=== PATIENT | male | born 1995 | race Two or more races ===

== ENCOUNTER 2024-08-08 20:57 | Emergency (ER) | payer MEDICAID, OTHER ==
[~2024-08-08] VITALS: Ht 180.3 cm; Wt 100.2 kg
[2024-08-08] MEDS ORDERED: AMOX875T4 PO (21:42)
[2024-08-08] MEDS ORDERED: IBUP-1456 PO (21:42)
--- NOTE | 2024-08-08 21:42 | ED.PDOC ---
History of Present Illness(SKN HPI Comments 29-year-old male presents to ER for wound check. Patient reports that he developed a "pimple" to left buttock three days ago that has since gotten bigger with associated redness and pain x1 day. Reports 3/10 pain localized to left buttock. Denies use of medications for current symptoms and presents to ER ambulatory on arrival, with steady gait, in no distress. Denies fever, body aches, chills, night sweats, drainage or any further symptoms/complaints Chief Complaint: Abscess Time Seen by MD: 21:04 Primary Care Provider: UNKNOWN History of Present Illness: Nurses Notes, Medications, Allergies Home Meds Active Scripts Ibuprofen (Ibuprofen) 800 Mg Tab, 1 TAB PO TID PRN, #30 TAB 0 Refills Prov:MARISA MENENDEZ 08/08/24 Amoxicillin & Pot Clavulanate (Amoxicillin/Potassium Cla) 875 Mg Tab, 1 TAB PO BID for 7 Days, #14 TAB 0 Refills Prov:MARISA MENENDEZ 08/08/24 Information Source: Patient Past Medical History PAST MEDICAL HISTORY: Denies Surgical History: Denies all surgeries Family History Family History: Unknown Social History Smoker: Non-Smoker Alcohol: Denies ETOH Use Drugs: Denies Drug Use Lives In: Home Constitutional: denies: chills, diaphoresis, fatigue, fever, malaise, sweats, weakness, others EENTM: denies: blurred vision, double vision, ear bleeding, ear discharge, ear drainage, ear pain, ear ringing, eye pain, eye redness, hearing loss, mouth pain, mouth swelling, nasal discharge, nose bleeding, nose congestion, nose pain, photophobia, tearing, throat pain, throat swelling, voice changes, others Respiratory: denies: cough, hemoptysis, orthopnea, SOB at rest, shortness of breath, SOB with excertion, stridor, wheezing, others Cardiovascular: denies: chest pain, dizzy spells, diaphoresis, Dyspnea on exertion, edema, irregular heart beat, left arm pain, lightheadedness, palpitations, PND, syncope, others Gastrointestinal: denies: abdomen distended, abdominal pain, blood streaked bowels, constipated, diarrhea, dysphagia, difficulty swallowing, hematemesis, melena, nausea, poor appetite, poor fluid intake, rectal bleeding, rectal pain, vomiting, others Genitourinary: denies: burning, dysuria, flank pain, frequency, hematuria, incontinence, penile discharge, penile sore, pain, testicle pain, testicle swel ling, urgency, others Neurological: denies: dizziness, fainting, headache, left sided numbness, left sided weakness, numbness, paresthesia, pre-existing deficit, right sided numbness, right sided weakness, seizure, speech problems, tingling, tremors, weakness, others Musculoskeletal: denies: back pain, gout, joint pain, joint swelling, muscle pain, muscle stiffness, neck pain, others Integumetry: reports: others (As stated in HPI) Allergic/Immunocompromised: denies: Difficulty Healing, Frequent Infections, Hives, Itching, others Hematologic/Lymphatic: denies: anemia, blood clots, easy bleeding, easy bruising, swollen glands, others Endocrine: denies: excessive hunger, excessive sweating, excessive thirst, excessive urination, flushing, intolerance to cold, intolerance to heat, unexplained weight gain, unexplained weight loss, others Psychiatric: denies: anxiety, bipolar disorder, depression, hopeless, panic disorder, schizophrenia, sleepless, suicidal, others Physical Exam General Appearance: No Apparent Distress HEENT: PERRL/EOMI Neck: Full Range of Motion, Non-Tender, Normal Respiratory: Chest Non-Tender, Lungs Clear, No Accessory Muscle Use, No Respiratory Distress, Normal Breath Sounds Cardiovascular: No Murmur, No Gallop, Regular Rate/Rhythm Breast Exam: Deferred Gastrointestinal: NOT DONE Genitalia: Deferred Pelvic: Deferred Rectal: Deferred Extremities: Normal capillary refill, Normal range of motion Neurologic: Alert, No Motor Deficits, Normal Affect, Normal Mood, No Sensory Deficits Cerebellar Function: Normal Reflexes: Normal Skin: Dry, Warm, Other (<.5 cm papule with mild surrounding swelling/erythema centralized to left buttock. No fluctuance/drainage/further skin changes noted) Lymphatic: No Adenopathy Was a procedure done? Was a procedure done?: No Sedation Sedation?: No Differential Diagnosis (INTG) Differential Diagnosis: Abrasion Differential Diagnosis: Abscess Differential Diagnosis: Puncture Wound, Retained Foreign Body X-Ray, Labs, Meds, VS Vital Signs Date Time Temp Pulse Resp B/P (MAP) Pulse Ox O2 Delivery O2 Flow Rate FiO2 08/08/24 21:10 98.6 129 16 116/97 (103) 99 98.6 Rocephin 1 g IM ordered Wound care/cleaning discussed and advised Advised to follow up with PCP in 1-2 days Patient verbalized understanding and agreeable with current plan of care Advised to return to ER immediately if symptoms worsen Time of 1ST Reevaluation: 21:24 Reevaluation 1ST: N/A Patient Education/Counseling: Diagnosis, Treatment, Prognosis, Need For Follow Up Family Education/Counseling: No Family Present SEPSIS Sepsis Screen Vital Signs Date Time Temp Pulse Resp B/P (MAP) Pulse Ox O2 Delivery O2 Flow Rate FiO2 08/08/24 21:10 98.6 129 16 116/97 (103) 99 98.6 Departure 1 Departure Time of Disposition: 21:40 Impression: Primary Impression: Cellulitis of buttock, left Disposition: 01 HOME / SELF CARE / HOMELESS Condition: Stable e-Prescriptions Ibuprofen (Ibuprofen) 800 Mg Tab 1 TAB PO TID PRN, #30 TAB 0 Refills Prov: MARISA MENENDEZ 08/08/24 Amoxicillin & Pot Clavulanate (Amoxicillin/Potassium Cla) 875 Mg Tab 1 TAB PO BID for 7 Days, #14 TAB 0 Refills Prov: MARISA MENENDEZ 08/08/24 Discharged With: Self Critical Care Note Critical Care Time?: No Stability Stability form required: No Heart Score Heart Score: Heart Score Response (Comments) Value History N/A 0 EKG N/A 0 Age N/A 0 Risk Factors N/A 0 Troponin N/A 0 Total 0 MARISA MENENDEZ Aug 08, 2024 21:42
[2024-08-08] MEDS ORDERED: cefTRIAXone SOD 1,000 MG VL IM ONE (21:45)
[2024-08-08 22:24] VITALS: BP 126/90; PULSE 108; RESP 18; TEMP 98.7; O2SAT 100
== END 2024-08-09 01:18 | disposition home or self-care (01) ==
LOC: ER 21:01
DX: L03.317 Cellulitis of buttock (principal); Z79.899 Other long term (current) drug therapy

== ENCOUNTER 2025-02-10 23:56 | Emergency (ER) | payer MEDICAID ==
[~2025-02-10 23:56] MED LIST: AMOX875T4 PO; IBUP-1456 PO
[2025-02-11 00:05] VITALS: PULSE 123; O2SAT 94
--- NOTE | 2025-02-11 00:12 | ED.PDOC ---
Pediatric Illness HPI Chief Complaint: Shortness of Breath Comments 5-month-old male is [id number] mother and father for c/c of dyspnea and barking cough. Patient is reported to have had flu-like symptoms with congestion for the past 2x days. Tonight, patient is reported to have developed seal-like barking cough with associated signs of difficulty breathing. History of croup in the past. Upon arrival to ED, patient was found with a SpO2 of 93-94%RA. Time Seen by MD: 00:00 Primary Care Provider: UNKNOWN Home Meds Active Scripts Ibuprofen (Ibuprofen) 800 Mg Tab, 1 TAB PO TID PRN, #30 TAB 0 Refills Prov:MARISA MENENDEZ 08/08/24 Amoxicillin & Pot Clavulanate (Amoxicillin/Potassium Cla) 875 Mg Tab, 1 TAB PO BID for 7 Days, #14 TAB 0 Refills Prov:MARISA MENENDEZ 08/08/24 Information Source: Relative Mode of Arrival: Carried Prehospital Treatment: None Severity: Moderate Timing: Hours Past Medical History Pediatric Medical History (Oth: croup Medical History: croup Operations: Denies Family History Family History: Unknown Social History Smoking: Non-Smoker Alcohol: Denies ETOH Use Drugs: Denies Drug Use Lives In: Home All Other Systems: Reviewed and Negative (As per HPI) Physical Exam General Appearance: No Apparent Distress, Normal HEENT: Pharynx Normal, TMs Normal, Other (nasal congestion, otherwise, normal HEENT) Neck: Full Range of Motion, Non-Tender, Normal, Normal Inspection Respiratory: Chest Non-Tender, No Accessory Muscle Use, No Respiratory Distress, Stridor (mild ) Cardiovascular: No Edema, No JVD, No Murmur, No Gallop, Normal Peripheral Pulses, Regular Rate/Rhythm Breast Exam: Deferred Gastrointestinal: No Organomegaly, Non Tender, No Pulsatile Mass, Normal Bowel Sounds, Soft Genitalia: Deferred Pelvic: Deferred Rectal: Deferred Extremities: No calf tenderness, Normal capillary refill, Normal inspection, Normal range of motion, Non-tender, No pedal edema Musculoskeletal : Apperance: Normal Neurologic: Alert, assigner II-XII nml as Tested, No Motor Deficits, Normal Affect, Normal Mood, No Sensory Deficits Cerebellar Function: Normal Reflexes: Normal Skin: Dry, Normal Color, Warm Lymphatic: No Adenopathy Was a procedure done? Was a procedure done?: No Pediatric Differential Dx Pediatric Differential Dx: Bronchitis, Dehydration, Electrolyte disorder, Hypoxemia, Influenza, Pneumonia, URI, Viral exanthem, Viral Syndrome X-Ray, Labs, Meds, VS Vital Signs Date Time Temp Pulse Resp B/P (MAP) Pulse Ox O2 Delivery O2 Flow Rate FiO2 02/11/25 00:23 28 Room Air* 0 21 02/11/25 00:18 98.6 02/11/25 00:05 97.9 123 28 94 97.9 Current Medications Medications (Trade) Dose Ordered Sig/Estella Route Start Time Stop Time Status Last Admin Dexamethasone Sodium Phosphate (Decadron Injection) 6 mg ONCE ONCE PO 02/11/25 00:15 02/11/25 00:16 DC 02/11/25 00:18 Epinephrine HCl (Racenephrine) 0.5 ml ONCE ONCE NEB 02/11/25 00:15 02/11/25 00:16 DC 02/11/25 00:23 Ibuprofen (MOTRIN 100MG/5 mL ORAL SUSP) 85 mg ONCE ONCE PO 02/11/25 00:15 02/11/25 00:16 DC 02/11/25 00:18 Time of 1ST Reevaluation: 00:30 Reevaluation 1ST: Unchanged Patient Education/Counseling: Other (Patient is an infant ) Family Education/Counseling: Diagnosis, Treatment Departure 1 Departure Time of Disposition: 02:00 Impression: Primary Impression: Croup Additional Impression: Croup in pediatric patient Disposition: 01 HOME / SELF CARE / HOMELESS Condition: Stable Discharged With: Relative (Mother) Critical Care Note Critical Care Time?: No Stability Stability form required: No I personally scribed for LIBAN CORDOVA MD ([email or web address]) on 02/11/25 at 00:12. Electronically submitted by Kristian Snow [email or web address]). LIBAN CORDOVA MD Feb 11, 2025 00:12
[2025-02-11 00:18] VITALS: TEMP 98.6
[2025-02-11] MEDS: IBUPROFEN 100MG/5ML ORAL SUSP 100 MG/5 ML UD PO ONE (00:18)
[2025-02-11 00:23] VITALS: RESP 28
[2025-02-11] MEDS: EPINEPHrine HCL 0.5 ML NEB NEB ONE (00:23)
== END 2025-02-11 02:17 | disposition left against medical advice (07) ==
LOC: ER 23:56 → EDBD 23:56 → ER 02-11 02:17
DX: J05.0 Acute obstructive laryngitis [croup] (principal); Z79.899 Other long term (current) drug therapy
CPT/HCPCS: 94640